=== PATIENT | female | born 2000 | race African-American/Black ===

== ENCOUNTER 2024-07-24 13:14 | Emergency (ER) | payer MEDICAID, SELFPAY ==
[2024-07-24 13:15] VITALS: BP 126/79; PULSE 93; RESP 18; TEMP 36.6; O2SAT 100; BMI 32.8
--- NOTE | 2024-07-24 14:13 | ED_ITS ---
Discharge Plan Disposition Patient Disposition: Home, Self-Care Chief Complaint: Recheck/Abnormal Lab/Rx Referrals Follow up/Referrals: Abimael Cohn MD [Primary Care Provider] - See instructions Activity Restrictions/Add. Instructions Additional Instructions/Restrictions: Call your family doctor to establish care for this visit to the emergency department and schedule follow-up within 48 hours to ensure improvement. If you have any worsening of your condition or any other concerning signs or symptoms, return to the emergency department or your primary care doctor for further evaluation. Clinical Impressions Clinical Impression: Encounter for medical assessment Print Language Print Language: Armenian Discharge ED Provider: Magdiel Rivers General Adult HPI General Chief complaint: Recheck/Abnormal Lab/Rx Stated complaint: dedhydrated, heart fluttering, no pain Time Seen by Provider: 07/24/24 13:21 Mode of Arrival: Ambulatory Source of Information: Patient Limitations: No Limitations Description of Symptoms (Recalled from ER Triage Doc. by RN): Patient reports generally not feeling well. States that she is shaky, her eyes feel weird and that she just does not feel well. History of Present Illness HPI narrative: Please note that above description of symptoms, in this electronic medical record under categorization of recalled from ER triage doctor by RN are reflective of an initial nursing assessment, however, is not reflective of my full history and physical exam that was personally taken and clarified. Consequentially, this preceding description of symptoms, which may include the patient's categorized chief complaint in the EMR, do not reflect my personal clinical impression, and the ultimate description of history of present illness and patient stated complaints should be deferred to this section of the note. Unless stated otherwise or congruent with this section of the note, additional signs, symptoms, or incongruence should be interpreted as inaccurate with my clinical impression. Related Data Allergies Allergy/AdvReac Type Severity Reaction Status Date / Time No Known Allergies Allergy Verified 07/24/24 13:24 [facility] Disclaimer: The information contained in this section may have been updated after the patient was seen, as this information can be updated by other users. Social History Smoking Status: Unknown if ever smoked alcohol intake: never current occupational status: employed Travel in the last 8 weeks: None ROS Obtained: Yes All systems reviewed & no additional complaints except as documented Physical Exam General General appearance: alert Head Head exam: atraumatic and normocephalic Eye Eye exam: Present normal appearance, PERRL and EOMI Neck Neck exam: Present normal inspection, full ROM and trachea midline Respiratory Respiratory exam: Absent respiratory distress, wheezes, stridor, accessory muscle use or prolonged expiratory phase Cardiovascular Cardiovascular exam: Present other (Pulses equal symmetric in upper and lower extremities) Abdominal Exam Abdominal exam: Present soft; Absent distention, tenderness or pulsatile mass Extremities Exam Extremities exam: Absent edema Neurological Exam Neurological exam: Present alert, oriented X3 and CN II-XII intact; Absent motor sensory deficit Skin Skin exam: Present warm and dry; Absent diaphoresis or erythema Medical Decision Making Medical Records Medical records reviewed: Yes I reviewed the patient's medical records. Screening: Per USPSTF and CDC recommendations, given the prevalence of disease in our region, it is our hospital?s policy to screen for HIV and viral Hepatitis for all patients aged 18 and over and those with ongoing risk factors. Dameon Inquiry Pt receiving controlled substance: No Dameon was queried for this patient: No Vital Signs: 07/24/24 13:15 Temperature 97.9 F Temperature Source Oral Pulse Rate [Radial] 93 H Respiratory Rate 18 Blood Pressure [Right Arm] 126/79 Blood Pressure Mean [Right Arm] 94 Blood Pressure Source [Right Arm] Automatic Cuff Blood Pressure Position [Right Arm] Sitting 02 Sat by Pulse Oximetry 100 Oxygen Delivery Method Room Air Lab Data Lab Results 07/24/24 14:14: WBC 6.3, RBC 4.65, Hgb 11.0 L, Hct 32.9 L, MCV 70.7 L, MCH 23.5 L, MCHC 33.3, RDW 16.9, Plt Count 271, MPV 8.2, Neut % (Auto) 54.8, Lymph % (Auto) 40.2, [place] % (Auto) 2.9, Eos % (Auto) 1.2, Baso % (Auto) 0.9, Neut # (Auto) 3.4, Lymph # (Auto) 2.5, [place] # (Auto) 0.2, Eos # (Auto) 0.1, Baso # (Auto) 0.1, Sodium 139, Potassium 4.4, Chloride 107, Carbon Dioxide 23, Anion Gap 13.4, BUN 11, Creatinine 0.90, Estimated Creat Clear 137, Estimated GFR 78, Est GFR ( Amer) 94, Glucose 96, Calcium 9.1, Magnesium 2.1, Total Bilirubin 0.4, AST 34, ALT 18, Alkaline Phosphatase 64, Total Protein 8.4 H, Albumin 4.5, Globulin 3.9 H, Albumin/Globulin Ratio 1.2, Thyroxine (T4) 8.7, HCG, Quant < 2 07/24/24 14:14 07/24/24 14:14 Orders (Tests/Meds): ORDERS Category Date Time Status CBC w/Auto Diff [Complete Blood Count Auto Diff] Stat Lab 07/24/24 14:14 Completed CMP [Comprehensive Metabolic Panel] Stat Lab 07/24/24 14:14 Results HCG,Quantitative Stat Lab 07/24/24 14:14 Results MAG [Magnesium] Stat Lab 07/24/24 14:14 Results T4 (Thyroxine) Stat Lab 07/24/24 14:14 Results TSH [Thyroid Stimulating Hormone] Stat Lab 07/24/24 14:14 Results UA [Urinalysis and Microscopic] Stat Lab 07/24/24 13:27 Ordered Medical Decision Narrative: 23-year-old female stating that she just does not feel well. Otherwise healthy. Has no other health complaints. Patient states that she has been feeling like this for a few days to a week. As stated, no specific symptoms. Feels generally weak, fatigued. States that she has started her period today, which is about 2 weeks earlier. She did have a miscarriage about 2 months prior to this that was uncomplicated and has had no other vaginal discharge or bleeding since. No chance of at this time, allegedly. History obtained the patient. On arrival, very well-appearing. Normotensive, nontachycardic, no acute distress. Abdomen soft, nontender, nondistended. Lungs and heart within normal limits. Differential includes dehydration, metabolic abnormality, , , intoxication, withdrawal, among others. Labs independently interpreted and significant for nonactionable workup overall with negative . Patient refusing urine sample. because patient at baseline without signs or symptoms of clinical decompensation, deemed appropriate for discharge. Results were relayed to patient who voiced understanding and were agreeable to outpatient management and follow up. I discussed my clinical impression with patient and answered all questions. At this time, the evidence for any other entities in the differential is insufficient to warrant any further testing or ED observation. This was explained as well. Advisory was given that persistent or worsening symptoms require further evaluation. I confirmed the understanding of this discussion. House Wrecker disclaimer Much of this encounter note is an electronic nuclear fuels research engineer spoken language to printed text. Electronic nuclear fuels research engineer of the spoken language may permit errors. Although I have reviewed the note, some errors may still exist. Critical Care Critical Care Time Critical Care Time: No
[2024-07-24 14:22] LABS: Basophils # 0.1 K/mm3 (0-0.2); Basophils % 0.9 % (0.1-2.0); Eosinophils # 0.1 K/mm3 (0.0-0.4); Eosinophils % 1.2 % (0.1-12.0); Hematocrit 32.9 % (37.0-47.0); Lymphocytes # 2.5 K/mm3 (0.7-4.5); Lymphocytes % 40.2 % (10-50); Mean Corpuscular HGB Conc 33.3 g/dL (31.8-35.4); Mean Corpuscular Hemoglobin 23.5 pg (27.0-31.2); Mean Corpuscular Volume 70.7 fl (81-99); Mean Platelet Volume 8.2 fl (7.4-10.4); Monocytes # 0.2 K/mm3 (0.1-1.0); Monocytes % 2.9 % (1.7-9.3); Neutrophils # 3.4 K/mm3 (1.8-7.8); Neutrophils % 54.8 % (37.0-80.0); Platelet Count 271 K/mm3 (142-424); Red Blood Count 4.65 M/mm3 (4.20-5.40); Red Cell Distribution Width 16.9 % (11.5-17.5); White Blood Count 6.3 K/mm3 (4.8-10.8)
[2024-07-24 14:27] LABS: Albumin Level 4.5 g/dl (3.5-5.0); Chloride 107 mmol/L (98-107); Potassium 4.4 mmoL/L (3.5-5.1); Sodium 139 mmol/L (136-145)
[2024-07-24 14:29] LABS: Blood Urea Nitrogen 11 mg/dl (7-17)
[2024-07-24 14:30] LABS: Alanine Aminotransferase 18 U/L (12-78); Albumin/Globulin Ratio 1.2 (1.1-1.8); Alkaline Phosphatase 64 U/L (38-126); Anion Gap 13.4 mEq/L (5-15); Aspartate Amino Transferase 34 U/L (14-36); Bilirubin,Total 0.4 mg/dl (0.2-1.3); Calcium 9.1 mg/dl (8.4-10.2); Carbon Dioxide 23 mmol/L (22.0-30.0); Creatinine Clearance Estimated 137 mL/min (50-200); Estimated Glomerular Filt Rate 78 ml/min (>60); GFR (African American) 94 ML/MIN (>60); Globulin 3.9 g/dL (1.3-3.2); Glucose 96 mg/dl (74-100); Magnesium 2.1 mg/dl (1.6-2.3); Total Protein,Serum 8.4 g/dl (6.3-8.2)
[2024-07-24 14:47] LABS: T4 (Thyroxine) 8.7 ug/dl (5.53-11.0)
[2024-07-24 15:00] LABS: HCG,Quantitative < 2 mIU/ml (0-5.42)
[2024-07-24 15:01] LABS: Thyroid Stimulating Hormone 0.28 uIU/mL (0.465-4.68)
--- NOTE | 2024-07-24 15:07 | PC.NURSE ---
PT REFUSED TO GIVE URINE SPECIMEN
[2024-07-24 15:15] VITALS: BP 132/84; PULSE 86; RESP 18; TEMP 36.7; O2SAT 100
== END 2024-07-24 15:16 | disposition home or self-care (01) ==
PROVIDERS: Emergency Provider Emergency Medicine; PCP Family Medicine
DX: Z00.8 Encounter for other general examination (principal); R00.2 Palpitations; G25.0 Essential tremor
CPT/HCPCS: 80050; 80053; 83735; 84436; 84443; 84702; 85025; 99283